=== PATIENT | female | born 1985 | race Two or more races ===

== ENCOUNTER 2017-08-06 20:47 | Emergency (ER) | payer OTHER ==
[~2017-08-06] VITALS: Ht 167.6 cm; Wt 72.6 kg
[2017-08-06 20:34] VITALS: BP 110/70
[2017-08-06] MEDS ORDERED: Bacitracin Oint UD TOPIC ONE ×2 (21:14→21:15)
[2017-08-06] MEDS ORDERED: IBUPROFEN600 MG ORAL (21:33)
[2017-08-06] MEDS ORDERED: SILVADENE20 GM TP (21:33)
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
[2017-08-06 21:41] VITALS: BP 110/70
== END 2017-08-06 22:00 | disposition home or self-care (01) ==
LOC: EDBD 20:47 → EMR 21:48
DX: S39.012A Strain of muscle, fascia and tendon of lower back, initial encounter (principal); T23.262A Burn of second degree of back of left hand, initial encounter; M54.2 Cervicalgia; V43.52XA Car driver injured in collision with other type car in traffic accident, initial encounter; Y93.9 Activity, unspecified; Y92.410 Unspecified street and highway as the place of occurrence of the external cause
CPT/HCPCS: 99284